=== PATIENT | female | born 1960 | race Caucasian/White ===

== ENCOUNTER → 2018-05-24 | Outpatient (CLI) | payer OTHER ==
[~2018-05-24] MED LIST: BIOT1CAP PO; CALC500T6 PO; HYDR-2966 PO; HYDROCHLOROTHIAZIDE PO; IBUP-56 PO; METO200T12 PO; METOPROLOL PO; MULT-885 PO; PER PO
--- NOTE | 2018-05-28 08:31 | RADIOLOGY IMAGING REPORT ---
FACILITY: [facility] PATIENT NAME: STEPHANIE CAREY : [id number] MR: [id number] V: [id number] EXAM DATE: [id number] ORDERING PHYSICIAN: NEVILLE BAR TECHNOLOGIST: Ila Hernandes PROCEDURE:BILATERAL DIGITAL SCREENING MAMMOGRAM WITH CAD ASSISTED INTERPRETATION & 3D TOMOSYNTHESIS COMPARISON:05/23/17 with priors to 05/25/11 INDICATIONS:SCREENING FINDINGS: The breasts have predominantly fatty parenchymal density. There are no mammographic findings concerning for malignancy. There is no significant interval change. DIAGNOSTIC CATEGORY 1--NEGATIVE. RECOMMENDATIONS: ROUTINE MAMMOGRAM AND CLINICAL EVALUATION. Follow up mammogram in 1 year. IMPRESSION: BIRADS 1: Negative. Dictated by: Ranjit Barragan on 05/25/2018 at 12:09 Transcribed by: ZAID on 05/25/2018 at 12:42 Approved by: Óscar Oneal M.D. on 05/28/2018 at 8:30 [facility]
== END ==
LOC: MAMO 01:25
PROVIDERS: ATTEND Nurse Practitioner Psychiatric/Mental Health
DX: Z12.31 Encounter for screening mammogram for malignant neoplasm of breast (principal)
CPT/HCPCS: 77063; 77067